=== PATIENT | male | born 2000 | race Hispanic/Latino ===

== ENCOUNTER 2024-09-30 02:51 | Emergency (ER) | payer OTHER, SELFPAY ==
[2024-09-30] MEDS ORDERED: Bacitracin 1 PK ONE (03:15)
[2024-09-30] MEDS ORDERED: Oxymetazoline HCl 0.05% (30 ML BOT) ONE (03:32)
== END 2024-09-30 03:38 ==
LOC: ERS 02:51
DX: Z02.89 Encounter for other administrative examinations (principal); F10.129 Alcohol abuse with intoxication, unspecified
CPT/HCPCS: 99284

== ENCOUNTER 2024-12-07 08:23 | Day surgery (SDC) | payer SELFPAY ==
[2024-12-06 16:23] VITALS: BMI 23.7
[2024-12-07] MEDS ORDERED: PHENYLephrine 2.5% Ophth Soln 15 ml Bottle ONE ×2 (08:47→08:48)
[2024-12-07] MEDS ORDERED: Cyclopentolate 1% Opth Drop 2 ML BOT ONE ×2 (08:47→08:49)
[2024-12-07] MEDS ORDERED: Fluorouracil 100 MG, Enoxaparin 25 MG, EPINEPHrine 0.3 MG in Ophthalmic Irrigation Solu... IRR SCH (09:00)
[2024-12-07] MEDS ORDERED: fentaNYL 50 mcg/mL 1 mL Vial ONE (09:08)
[2024-12-07] MEDS ORDERED: Sterile Water 10 ML ONE (09:11)
[2024-12-07] MEDS ORDERED: Dexmedetomidine 200 MCG/2 ML VIAL ONE (09:11)
[2024-12-07] MEDS ORDERED: Triamcinolone 40 MG/ML VIAL ONE (10:26)
[2024-12-07] MEDS ORDERED: CEFAZOLIN 1 GM VIAL ONE (10:26)
[2024-12-07] MEDS ORDERED: PROPOFOL 200 MG/20 ML VIAL ONE (10:26)
[2024-12-07] MEDS ORDERED: Maxitrol 0.1% Opth Oint 3.5 GM TUBE ONE (10:26)
[2024-12-07] MEDS ORDERED: Bupivacaine 0.75% 10 ML VIAL ONE (10:26)
[2024-12-07] MEDS ORDERED: Lidocaine 1% PF 5 ML VIAL ONE ×2 (10:26)
[2024-12-07] MEDS ORDERED: Lidocaine 4% PF 5 ML AMP ONE (10:26)
[2024-12-07] MEDS ORDERED: Ondansetron PF 4 MG/2 ML Vial ONE (10:37)
[2024-12-07] MEDS ORDERED: Dexamethasone 20 MG/5 ML VIAL ONE (10:37)
== END 2024-12-07 13:55 | disposition home or self-care (01) ==
LOC: SDC 08:23
PROVIDERS: ATTEND Ophthalmology Retina Specialist
PROC: 08T53ZZ Resection of Left Vitreous, Percutaneous Approach (ICD-10-PCS; principal; 2024-12-07)
DX: H33.022 Retinal detachment with multiple breaks, left eye (principal)
CPT/HCPCS: C1814; C2617; J0171; J0690; J1100; J1650; J2405; J2704; J3010; J3301; J3490; J9190